=== PATIENT | female | born 1980 | race Caucasian/White ===

== ENCOUNTER 2025-08-22 07:37 | Day surgery (SDC) | payer BC ==
[~2025-08-22 07:37] MED LIST: Sodium Chloride 0.9% 10 ML Syringe FLUSH PRN; Sodium Chloride 0.9% 10 ML Syringe FLUSH SCH
[2025-08-22] MEDS: Lactated Ringers 1,000 ML IV SCH (08:15)
[2025-08-22 08:29] LABS: GLUCOSE,POC 90 mg/dL (70-99)
[2025-08-22] MEDS ORDERED: propofoL 500 MG/50 ML 50 ML ONE (08:58)
[2025-08-22 12:34] VITALS: BP 122/80; PULSE 74
== END 2025-08-22 10:15 | disposition home or self-care (01) ==
LOC: JD.SDS 07:37
PROVIDERS: ATTEND Surgery
DX: Z12.11 Encounter for screening for malignant neoplasm of colon (principal); I10 Essential (primary) hypertension; E66.9 Obesity, unspecified; E11.9 Type 2 diabetes mellitus without complications; Z68.30 Body mass index [BMI] 30.0-30.9, adult; Z79.84 Long term (current) use of oral hypoglycemic drugs; Z87.891 Personal history of nicotine dependence; Z79.899 Other long term (current) drug therapy
CPT/HCPCS: 82947; J2003; J2704; J7120